=== PATIENT | female | born 1965 | race Caucasian/White ===

== ENCOUNTER 2024-10-05 09:19 | Outpatient (CLI) | payer MEDICARE ==
--- NOTE | 2024-10-05 10:48 | RADIOLOGY REPORT ---
INDICATION: POST MENOPAUSAL TECHNIQUE: Multiple real-time grayscale transabdominal sonographic images along with color and duplex Doppler of the uterus and ovaries were obtained. COMPARISON: None FINDINGS: The uterus measures 7.2 x 2.2 x 4.1 cm. The endometrial stripe measures 0.3 cm. The right ovary measures 2.6 X 1.8 X 1.7 cm. The left ovary measures 3.6 X 2.3 X 2.3 cm. Subsequent color and duplex Doppler interrogation of the ovaries demonstrated symmetric vascular flow to both ovaries, though this does not exclude the possibility of torsion due to the dual blood suppl y. IMPRESSION: 1. Grossly unremarkable pelvic ultrasound.
== END 2024-10-05 23:59 | disposition home or self-care (01) ==
LOC: RAD 09:19
PROVIDERS: ATTEND Nurse Practitioner Occupational Health
DX: Z78.0 Asymptomatic menopausal state (principal)
CPT/HCPCS: 76830; 76856; 93976